=== PATIENT | female | born 1960 | race Caucasian/White ===

== ENCOUNTER 2018-04-18 10:10 | Emergency (ER) | payer OTHER ==
[~2018-04-18] VITALS: Ht 172.7 cm; Wt 124.7 kg
[~2018-04-18 10:10] MED LIST: IBUPROFEN600 MG; IBUPROFEN800 MG PO; NORCO 5-325 TA1 EACH PO
== END 2018-04-18 10:34 | disposition home or self-care (01) ==
LOC: ED 10:10
DX: M25.532 Pain in left wrist (principal)

== ENCOUNTER 2020-03-07 19:06 | Emergency (ER) | payer OTHER ==
[~2020-03-07] VITALS: Ht 172.7 cm; Wt 124.7 kg
[2020-03-07] MEDS ORDERED: PROTONIX40 MG PO (23:03)
--- NOTE | 2020-03-08 11:47 | EKG ---
[facility] [address] [facility] [address] [facility] [place], [place] [address] Signed Sinus rhythm with sinus arrhythmia with occasional premature ventricular complexes Right bundle branch block Abnormal ECG No previous ECGs available Confirmed by GUADALUPE MCLAUGHLIN DO ([id number]) on 03/08/2020 11:47:01 AM Electronically Signed By: GUADALUPE MCLAUGHLIN DO 03/08/20 1147 PATIENT NAME: JACKIE FLORES Electrocardiogram DATE OF : 56 PHYSICIAN: GUADALUPE MCLAUGHLIN DO REPORT #: [id number] REPORT IS CONFIDENTIAL AND NOT TO BE RELEASED WITHOUT AUTHORIZATION
== END 2020-03-07 23:11 | disposition home or self-care (01) ==
LOC: ED 19:06
DX: R07.9 Chest pain, unspecified (principal); K44.9 Diaphragmatic hernia without obstruction or gangrene; Z88.5 Allergy status to narcotic agent
CPT/HCPCS: 71046; 71260; 74177; 80053; 83690; 83735; 84484; 85025; 85379; 85610; 93005; 93010; 99285-25; C9113; J1170; J2405; Q9967

== ENCOUNTER 2024-02-28 17:32 | Emergency (ER) | payer OTHER ==
[~2024-02-28] VITALS: Ht 172.7 cm; Wt 113.8 kg
[~2024-02-28 17:32] MED LIST changes: +PROTONIX40 MG PO; +REGLAN10 MG PO
[2024-02-28 18:27] VITALS: BP 154/75
== END 2024-02-28 18:30 | disposition home or self-care (01) ==
LOC: ED 17:32
DX: S61.112A Laceration without foreign body of left thumb with damage to nail, initial encounter (principal); Z87.01 Personal history of pneumonia (recurrent); Z88.5 Allergy status to narcotic agent; Z79.899 Other long term (current) drug therapy; W26.0XXA Contact with knife, initial encounter; Y93.G1 Activity, food preparation and clean up
CPT/HCPCS: 99282